=== PATIENT | female | born 1940 | race Caucasian/White ===

== ENCOUNTER 2022-03-06 08:46 | Day surgery (SDC) | payer MEDICARE ==
[~2022-03-06] VITALS: Ht 160 cm; Wt 73.4 kg
[2022-03-06] MEDS ORDERED: Lovastatin20 MG (09:19)
[2022-03-06] MEDS ORDERED: METO25ER (09:20)
[2022-03-06] MEDS ORDERED: Aspir 8181 MG PO (09:20)
[2022-03-06] MEDS ORDERED: RALO60 (09:21)
--- NOTE | 2022-03-06 09:29 | NUR ---
03/06/22 0929 Caryn Hooks RIGHT EYE @ 0915 AMOR RIGHT EYE @ 0922 BY [facility] [place]
== END 2022-03-06 11:35 | disposition home or self-care (01) ==
LOC: ORSCSDS 08:46
PROVIDERS: Ophthalmology
PROC: 08RJ3JZ Replacement of Right Lens with Synthetic Substitute, Percutaneous Approach (ICD-10-PCS; principal; 2022-03-06 10:00)
DX: H25.11 Age-related nuclear cataract, right eye (principal); I10 Essential (primary) hypertension; E78.5 Hyperlipidemia, unspecified; Z79.82 Long term (current) use of aspirin; Z79.899 Other long term (current) drug therapy
CPT/HCPCS: J2001; J2250; J3010; J3301; J7040; V2632

== ENCOUNTER 2022-03-29 06:52 | Day surgery (SDC) | payer MEDICARE ==
[~2022-03-29] VITALS: Ht 160 cm; Wt 74.7 kg
[~2022-03-29 06:52] MED LIST: Aspir 8181 MG PO; Lovastatin20 MG; METO25ER; RALO60
--- NOTE | 2022-03-29 07:08 | NUR ---
03/29/22 0708 Caryn Hooks LEFT EYE AT 0704 AMOR LEFT EYE AT 0707 BY [facility]
== END 2022-03-29 08:30 | disposition home or self-care (01) ==
LOC: ORSCSDS 06:52
PROVIDERS: Ophthalmology
PROC: 08RK3JZ Replacement of Left Lens with Synthetic Substitute, Percutaneous Approach (ICD-10-PCS; principal; 2022-03-29 08:00)
DX: H25.12 Age-related nuclear cataract, left eye (principal); Z96.1 Presence of intraocular lens; I10 Essential (primary) hypertension; I47.1 Supraventricular tachycardia; E78.5 Hyperlipidemia, unspecified; Z79.82 Long term (current) use of aspirin; Z79.899 Other long term (current) drug therapy
CPT/HCPCS: J2001; J2250; J3010; J3301; V2632